=== PATIENT | female | born 1975 | race Caucasian/White ===

== ENCOUNTER 2017-08-07 11:38 | Day surgery (SDC) | payer MEDICAID ==
[2017-08-06 08:16] LABS: BASOPHILS # (AUTO) 0.1 K/uL (0.00-0.22); BASOPHILS % (AUTO) 1.4 % (0.0-2.0); EOSINOPHILS # (AUTO) 0.3 K/uL (0-0.4); HEMATOCRIT 37.4 % (36-48); HEMOGLOBIN 12.2 g/dL (12.0-16.0); LYMPHOCYTES # (AUTO) 2.3 K/uL (2.5-16.5); LYMPHOCYTES % (AUTO) 23.2 % (20.5-51.1); MEAN CORPUSCULAR HEMOGLOBIN 26 pg (27-31); MEAN CORPUSCULAR HGB CONC 33 g/dL (33-37); MEAN CORPUSCULAR VOLUME 80 fL (80-94); MONOCYTES # (AUTO) 0.3 K/uL (0.8-1.0); MONOCYTES % (AUTO) 3.4 % (1.7-9.3); PLATELET COUNT (AUTO) 352 K/uL (140-450); RED CELL DISTRIBUTION WIDTH 14.9 % (11.6-13.7)
[2017-08-06 08:31] LABS: ALBUMIN 3.4 g/dL (3.4-5.0); ANION GAP 11.3 (8-16); CARBON DIOXIDE 27.7 mmol/L (21-32); CREATININE 0.7 mg/dL (0.6-1.3); TOTAL BILIRUBIN 0.3 mg/dL (0.0-1.0)
[~2017-08-07] VITALS: Ht 149.9 cm; Wt 93.4 kg
[2017-08-07] MEDS ORDERED: LIDOCAINE 1% 50 ML ONE (13:53)
[2017-08-07] MEDS ORDERED: ceFAZolin 1,000 MG VIAL ONE (13:53)
[2017-08-07] MEDS ORDERED: BUPIVACAINE-MPF 0.25% 30 ML VIAL INJ ONE (13:53)
[2017-08-07] MEDS ORDERED: fentaNYL 0.05 MG/ML VIAL ONE (13:59)
[2017-08-07] MEDS ORDERED: MIDAZOLAM 2 MG/2 ML VIAL ONE (13:59)
[2017-08-07] MEDS ORDERED: METOCLOPRAMIDE 10 MG/2 ML INJ VIAL IVP PRN (14:35)
[2017-08-07] MEDS ORDERED: MORPHINE SULFATE 4 MG/ML SYR IVP PRN ×2 (14:35)
[2017-08-07] MEDS ORDERED: MIDAZOLAM 2 MG/2 ML VIAL IV ONE (14:35)
[2017-08-07] MEDS ORDERED: MORPHINE SULFATE 2 MG/ML SYR IVP PRN (14:35)
[2017-08-07] MEDS ORDERED: MORPHINE SULFATE 4 MG/ML SYR ONE ×2 (15:12→15:47)
[2017-08-07] MEDS ORDERED: HYDROmorphone 1 MG/ML AMP IVP PRN (15:15)
[2017-08-07] MEDS ORDERED: HYDROcodone/APAP 5/325 MG 1 TAB TAB PO PRN (15:15)
[2017-08-07] MEDS ORDERED: ONDANSETRON 4 MG/2 ML VIAL IV PRN (15:15)
[2017-08-07] MEDS ORDERED: MORPHINE SULFATE 4 MG/ML SYR IV PRN (15:15)
[2017-08-07 16:05] VITALS: BP 154/93
--- NOTE | 2017-08-07 16:05 | NUR ---
PT ARRIVED ON [facility] UNIT RECEIVED PT REPORT FROM DAY SURGERY NURSE. PT IS AAOX4 AND DROWSY BUT SHOWS NO S/S OF ACUTE DISTRESS ON ROOM AIR. PT V/S ARE STABLE AND CHARTED. PT HAS NOTED MEDIPORT ON THE LEFT UPPER CHEST. IV NOTED ON THE L AC SL. PT DENIES PAIN AT THIS TIME. PT AT BEDSIDE AND WAS EXPLAINED POC FOR TODAY. PT VERBALIZED UNDERSTANDING. PT HAS IV KIT IN POSSESSION AND HAS IT NOW. WILL CONTINUE TO MONITOR.
--- NOTE | 2017-08-07 17:22 | NUR ---
PT AMB TO BR AND STATED SHE FELT A LITTLE DIZZY. PT STATES SHE IS FINE AND IS NOW USING THE RR. WILL CONTINUE TO MONITOR.
--- NOTE | 2017-08-07 18:12 | NUR ---
PT C/O NAUSEA AFTER EATING DINNER. ADMINISTERED ZOFRAN 4 MG IVP. WILL REASSESS IN 30 MIN.
[2017-08-07 18:50] VITALS: BP 153/99
--- NOTE | 2017-08-07 18:50 | NUR ---
PT HAS BEEN DISCHARGED. ALL DISCHARGE INSTRUCTIONS AND PRESCRIPTIONS GIVEN AND IN PT POSSESSION. ALL PAPERWORK SIGNED. ALL QUESTIONS ANSWERED. ALL BELONGINGS AND PRESCRIPTIONS IN PT POSSESSION. IV WAS DISCONTINUED WITH CANNULA INTACT. WRISTBANDS REMOVED. PT LEFT UNIT IN STABLE CONDITION, DENIED PAIN, SOB, AND NAUSEA/VOMITING. PT LEFT UNIT IN WHEELCHAIR WITH PRESENT AT SIDE. PT LEFT IN STABLE CONDITION.
== END 2017-08-07 18:50 | disposition home or self-care (01) ==
LOC: MDS 11:38 → MMU 11:39 → MDS 18:50
PROVIDERS: ATTEND Surgery
DX: C50.911 Malignant neoplasm of unspecified site of right female breast (principal); E66.01 Morbid (severe) obesity due to excess calories
CPT/HCPCS: 36415; 36561; 71010; 77001; 80053; 84702; 85025; 86886; 86900; 86901; 93005; C1751; J0690; J1644; J2001; J2250; J2270; J2405; J3010; J3490; J7030; J7060; J7120; Q0092

== ENCOUNTER 2018-05-24 10:04 | Emergency (ER) | payer MEDICAID ==
[~2018-05-24] VITALS: Ht 149.9 cm; Wt 108.9 kg
[2018-05-24 10:15] VITALS: BP 192/112
--- NOTE | 2018-05-24 10:24 | NUR ---
PATIENT PRESENTS TO ED WITH RIGHT BREAST INCISION SITE REDNESS AND DRAINAGE---PRESSURE PAIN TO SITE---SURGICAL EXCISION OF TUMOR ON RIGHT BREAST 12/2017 . PT STATES . DENIES N/V/D; SKIN IS PINK/WARM/DRY; PT DENIES ANY FEVER, CP, SOB, OR COUGH AT THIS TIME; PATIENT STATES PAIN OF 3/10 AT THIS TIME; VSS; PATIENT POSITIONED FOR COMFORT; HOB ELEVATED; BEDRAILS UP X2; BED DOWN. ER MD MADE AWARE OF PT STATUS.
--- NOTE | 2018-05-24 12:35 | NUR ---
MD AWARE OF ULTRASOUND READ IS BACK---
--- NOTE | 2018-05-24 14:06 | NUR ---
PLAN IS FOR TO EVALUATE PT POSSIBLE ADMISSION---BLOOD HAS BEEN COLLECTED
[2018-05-24 14:20] LABS: BASOPHILS % (AUTO) 0.4 % (0.0-2.0); EOSINOPHILS # (AUTO) 0.1 K/uL (0-0.4); EOSINOPHILS % (AUTO) 1.1 % (0.0-4.0); HEMATOCRIT 40.7 % (36-48); LYMPHOCYTES # (AUTO) 1.7 K/uL (2.5-16.5); LYMPHOCYTES % (AUTO) 23.8 % (20.5-51.1); MEAN CORPUSCULAR HEMOGLOBIN 26 pg (27-31); MEAN CORPUSCULAR HGB CONC 32 g/dL (33-37); MEAN CORPUSCULAR VOLUME 80.7 fL (80-94); MONOCYTES # (AUTO) 0.4 K/uL (0.8-1.0); MONOCYTES % (AUTO) 5.1 % (1.7-9.3); NEUTROPHILS # (AUTO) 4.9 K/uL (1.8-7.7); NEUTROPHILS % (AUTO) 69.6 % (42.2-75.2); PLATELET COUNT (AUTO) 365 K/uL (140-450); RED BLOOD CELL COUNT(AUTO) 5.05 MIL/uL (4.20-5.40); RED CELL DISTRIBUTION WIDTH 16.2 % (11.6-13.7); WHITE BLOOD COUNT (AUTO) 7.1 K/uL (4.8-10.8)
[2018-05-24 14:48] LABS: ANION GAP 13.5 (8-16); CARBON DIOXIDE 26.1 mmol/L (21-32); CREATININE 0.7 mg/dL (0.6-1.3); POTASSIUM 3.6 mmol/L (3.5-5.1)
--- NOTE | 2018-05-24 17:50 | NUR ---
I & D ABSCESS TO RIGHT BREAST----MD SPOKE WITH PT ABOUT F/U 06/03/2018 AND RX FOR KEFLEX
--- NOTE | 2018-05-24 18:35 | NUR ---
Patient discharged with v/s stable. Written and verbal after care instructions given and explained. Patient alert, oriented and verbalized understanding of instructions. Ambulatory with steady gait. All questions addressed prior to discharge. ID band removed. Patient advised to follow up with PMD. Rx of KEFLEX/NORCO given. Patient educated on indication of medication including possible reaction and side effects. Opportunity to ask questions provided and answered.
[2018-05-24 18:36] VITALS: BP 132/84
== END 2018-05-24 18:35 | disposition home or self-care (01) ==
LOC: MED 10:04
DX: N61.1 Abscess of the breast and nipple (principal); Z85.3 Personal history of malignant neoplasm of breast; I10 Essential (primary) hypertension; Z98.890 Other specified postprocedural states
CPT/HCPCS: 19120; 36415; 76641; 80048; 85025; 87040; 99285; Q0092

== ENCOUNTER 2018-05-27 07:23 | Emergency (ER) | payer MEDICAID ==
[~2018-05-27] VITALS: Ht 149.9 cm; Wt 91.6 kg
[2018-05-27 07:24] VITALS: BP 142/88
--- NOTE | 2018-05-27 07:32 | NUR ---
PT AMBULATED TO BED 12 WITH STEADY GAIT
--- NOTE | 2018-05-27 07:40 | NUR ---
43/F PRESENT TO ER C/O RIGHT BREAST INCISION SITE RECHECK---SURGICAL EXCISION OF TUMOR ON RIGHT BREAST 12/2017. NOT REDNESS, SWELLING OR DISCHARGE NOTED AT THE INCISION SITE. PAIN 12/15. PT WITH NO OTHER C/O AT THIS TIME. PT POSITIONED FOR COMFORT. HX: HTN MEDS: NONE
--- NOTE | 2018-05-27 07:49 | NUR ---
Patient being evaluated by physician at bedside.
[2018-05-27] MEDS ORDERED: NEOMYCIN/POLYMYXIN/BACITRACIN 0.9 GM/1 PKT TP ONE (07:50)
[2018-05-27 08:11] VITALS: BP 142/88
--- NOTE | 2018-05-27 08:11 | NUR ---
Patient discharged with v/s stable. Written and verbal after care instructions given and explained. Patient verbalized understanding. Ambulatory with steady gait. All questions addressed prior to discharge. Advised to follow up with PMD.
== END 2018-05-27 08:11 | disposition home or self-care (01) ==
LOC: MED 07:23
DX: Z48.01 Encounter for change or removal of surgical wound dressing (principal); I10 Essential (primary) hypertension; Z85.3 Personal history of malignant neoplasm of breast
CPT/HCPCS: 99283

== ENCOUNTER 2018-09-03 05:57 | Day surgery (SDC) | payer MEDICAID ==
[2018-08-30 16:24] LABS: BASOPHILS % (AUTO) 0.5 % (0.0-2.0); EOSINOPHILS # (AUTO) 0.2 K/uL (0-0.4); EOSINOPHILS % (AUTO) 2.2 % (0.0-4.0); HEMATOCRIT 41.8 % (36-48); HEMOGLOBIN 13.5 g/dL (12.0-16.0); LYMPHOCYTES # (AUTO) 2.4 K/uL (2.5-16.5); MEAN CORPUSCULAR HEMOGLOBIN 26 pg (27-31); MEAN CORPUSCULAR HGB CONC 32 g/dL (33-37); MEAN CORPUSCULAR VOLUME 80.5 fL (80-94); MONOCYTES # (AUTO) 0.3 K/uL (0.8-1.0); MONOCYTES % (AUTO) 4.1 % (1.7-9.3); NEUTROPHILS # (AUTO) 4.9 K/uL (1.8-7.7); NEUTROPHILS % (AUTO) 62.2 % (42.2-75.2); PLATELET COUNT (AUTO) 361 K/uL (140-450); RED BLOOD CELL COUNT(AUTO) 5.19 MIL/uL (4.20-5.40); RED CELL DISTRIBUTION WIDTH 14.8 % (11.6-13.7); WHITE BLOOD COUNT (AUTO) 7.8 K/uL (4.8-10.8)
[2018-08-30 16:45] LABS: ANION GAP 8.9 (8-16); CARBON DIOXIDE 30.8 mmol/L (21-32); CREATININE 0.7 mg/dL (0.6-1.3); POTASSIUM 3.7 mmol/L (3.5-5.1)
[~2018-09-03] VITALS: Ht 152.4 cm; Wt 89.8 kg
[2018-09-03] MEDS ORDERED: EXEM25TA5 PO (07:02)
[2018-09-03] MEDS ORDERED: CEFAZOLIN SODIUM 1 GM/D5W PM 50 ML IV SCH (07:20)
[2018-09-03] MEDS ORDERED: LIDOCAINE/EPI MPF 1%1:200000 30 ML VIAL INJ ONE (07:20)
[2018-09-03] MEDS ORDERED: BUPIVACAINE-MPF/EPI 0.25% 30 ML VIAL INJ ONE (07:20)
[2018-09-03] MEDS ORDERED: MIDAZOLAM 2 MG/2 ML VIAL ONE (07:28)
[2018-09-03] MEDS ORDERED: fentaNYL 0.05 MG/ML VIAL ONE (07:28)
[2018-09-03] MEDS ORDERED: HYDROcodone/APAP 5/325 MG 1 TAB TAB PO PRN (08:20)
[2018-09-03] MEDS ORDERED: ONDANSETRON 4 MG/2 ML VIAL IV PRN (08:20)
[2018-09-03] MEDS ORDERED: HYDROmorphone 1 MG/ML AMP IVP PRN (08:20)
[2018-09-03] MEDS ORDERED: MORPHINE SULFATE 4 MG/ML SYR IV PRN (08:20)
[2018-09-03] MEDS ORDERED: MORPHINE SULFATE 4 MG/ML SYR IVP PRN (08:20)
== END 2018-09-03 09:14 | disposition home or self-care (01) ==
LOC: MDS 05:57 → MMU 05:59 → MDS 09:14
PROVIDERS: ATTEND Surgery
DX: Z45.2 Encounter for adjustment and management of vascular access device (principal); I10 Essential (primary) hypertension; E11.9 Type 2 diabetes mellitus without complications; Z79.899 Other long term (current) drug therapy; Z85.3 Personal history of malignant neoplasm of breast; Z98.890 Other specified postprocedural states; Z98.51 Tubal ligation status
CPT/HCPCS: 36415; 36590; 71045; 80048; 81025; 82948; 85025; 93005; J0690; J3490; J7120; J2001; J2250; J3010

== ENCOUNTER 2019-06-06 16:21 | Inpatient (IN) | payer MEDICAID ==
[~2019-06-06] VITALS: Ht 152.4 cm; Wt 88.5 kg
[~2019-06-06 16:21] MED LIST: EXEM25TA5 PO
[2019-06-06 16:25] VITALS: BP 175/80
[2019-06-06] MEDS ORDERED: ASPIRIN 81 MG TAB.CHEW PO ONE (16:55)
[2019-06-06] MEDS ORDERED: NITROGLYCERIN 0.4 MG TAB SL ONE (16:55)
[2019-06-06 17:30] LABS: BASOPHILS % (AUTO) 0.4 % (0.0-2.0); EOSINOPHILS # (AUTO) 0.1 K/uL (0-0.4); EOSINOPHILS % (AUTO) 1.6 % (0.0-4.0); HEMATOCRIT 35.9 % (36-48); HEMOGLOBIN 11.8 g/dL (12.0-16.0); LYMPHOCYTES # (AUTO) 2.5 K/uL (2.5-16.5); LYMPHOCYTES % (AUTO) 29.4 % (20.5-51.1); MEAN CORPUSCULAR HEMOGLOBIN 27 pg (27-31); MEAN CORPUSCULAR HGB CONC 33 g/dL (33-37); MEAN CORPUSCULAR VOLUME 83.3 fL (80-94); MONOCYTES # (AUTO) 0.4 K/uL (0.8-1.0); MONOCYTES % (AUTO) 4.6 % (1.7-9.3); NEUTROPHILS # (AUTO) 5.4 K/uL (1.8-7.7); PLATELET COUNT (AUTO) 272 K/uL (140-450); RED BLOOD CELL COUNT(AUTO) 4.31 MIL/uL (4.20-5.40); RED CELL DISTRIBUTION WIDTH 13.8 % (11.6-13.7); WHITE BLOOD COUNT (AUTO) 8.5 K/uL (4.8-10.8)
[2019-06-06 17:40] LABS: APPEARANCE,URINE CLEAR (CLEAR); BILIRUBIN,URINE NEGATIVE (NEGATIVE); BLOOD, URINE NEGATIVE (NEGATIVE); COLOR,URINE YELLOW (YELLOW); LEUKOCYTE ESTERASE ,URINE TRACE (NEGATIVE); NITRITE, URINE NEGATIVE (NEGATIVE); PH,URINE 6.5 (5.0-9.0); UGLUCOSE NEGATIVE (NEGATIVE)
[2019-06-06 17:44] LABS: ANION GAP 12.2 (8-16); CARBON DIOXIDE 28.1 mmol/L (21-32); CREATININE 0.7 mg/dL (0.6-1.3); POTASSIUM 3.3 mmol/L (3.5-5.1)
[2019-06-06 17:45] LABS: RBC,URINE 0-5 /HPF (0-5)
[2019-06-06 17:49] LABS: ALBUMIN 3.2 g/dL (3.4-5.0); TOTAL BILIRUBIN 0.2 mg/dL (0.0-1.0)
[2019-06-06] MEDS ORDERED: TAMO20TA3 PO (18:12)
[2019-06-06] MEDS ORDERED: LISI-420 PO (18:12)
[2019-06-06] MEDS ORDERED: ORE25 PO (18:12)
[2019-06-06] MEDS ORDERED: METF500T PO (18:12)
[2019-06-06] MEDS ORDERED: ONDANSETRON 4 MG/2 ML VIAL IM/IVP PRN (18:25)
[2019-06-06] MEDS ORDERED: LORazepam 2 MG/ML VIAL IM/IVP PRN (18:25)
[2019-06-06] MEDS ORDERED: HYDROcodone/APAP 7.5/325 MG 1 TAB PO PRN (18:25)
[2019-06-06] MEDS ORDERED: FAMOTIDINE 20 MG/2 ML VIAL IV PRN (18:25)
[2019-06-06] MEDS ORDERED: DOCUSATE SODIUM 100 MG GELCAP PO PRN (18:25)
[2019-06-06] MEDS ORDERED: ACETAMINOPHEN 325 MG TAB PO PRN (18:25)
[2019-06-06] MEDS: NACL 0.9% 1,000 ML IV SCH (19:25)
[2019-06-06 19:52] LABS: PROTHROMBIN TIME 9.6 secs (10.8-13.4)
[2019-06-06 20:00] VITALS: BP 152/78
[2019-06-06] MEDS ORDERED: metFORMIN 500 MG TAB PO SCH (20:00)
[2019-06-06] MEDS ORDERED: POTASSIUM CHLORIDE 20 MEQ, LIDOCAINE MPF 1% - 5 mL VIAL 25 MG in NACL 0.9% 250 ML IV SCH (20:00)
[2019-06-06 20:10] LABS: ALBUMIN 3.2 g/dL (3.4-5.0); FREE T4 (FREE THYROXINE) 1.16 ng/dL (0.76-1.46); MAGNESIUM 1.8 mg/dL (1.8-2.4); PHOSPHORUS 4.8 mg/dL (2.5-4.9); THYROID STIMULATING HORMONE 1.67 uIU/mL (0.34-3.74)
[2019-06-06] MEDS: ATORVASTATIN 20 MG TAB PO SCH (20:27)
[2019-06-06] MEDS: metFORMIN 500 MG TAB PO SCH (20:45)
[2019-06-06] MEDS ORDERED: INSULIN LISPRO SLIDING SCALE 100 UNITS/ML VIAL SUBQ PRN (20:50)
[2019-06-06] MEDS ORDERED: GLUCAGON 1 MG VIAL IVP PRN (20:50)
[2019-06-06] MEDS ORDERED: DEXTROSE 50% 50 ML SYR IVP PRN (20:50)
[2019-06-06] MEDS ORDERED: KETOROLAC 30 MG/ML VIAL IM PRN (21:15)
[2019-06-06] MEDS: BLOOD GLUCOSE MONITORING 1 DEV DEV FS SCH (21:45)
[2019-06-06] MEDS ORDERED: METOPROLOL 25 MG TAB PO SCH (22:00)
[2019-06-07] VITALS: BP 150/75
[2019-06-07 04:00] VITALS: BP 151/82
[2019-06-07] MEDS: NACL 0.9% 1,000 ML IV SCH ×2 (04:35→14:35)
[2019-06-07 06:41] LABS: BASOPHILS % (AUTO) 0.2 % (0.0-2.0); EOSINOPHILS # (AUTO) 0.1 K/uL (0-0.4); HEMATOCRIT 35.6 % (36-48); HEMOGLOBIN 11.6 g/dL (12.0-16.0); LYMPHOCYTES # (AUTO) 2.7 K/uL (2.5-16.5); LYMPHOCYTES % (AUTO) 39.7 % (20.5-51.1); MEAN CORPUSCULAR HEMOGLOBIN 28 pg (27-31); MEAN CORPUSCULAR HGB CONC 33 g/dL (33-37); MEAN CORPUSCULAR VOLUME 84.9 fL (80-94); MONOCYTES # (AUTO) 0.3 K/uL (0.8-1.0); MONOCYTES % (AUTO) 4.8 % (1.7-9.3); NEUTROPHILS # (AUTO) 3.6 K/uL (1.8-7.7); NEUTROPHILS % (AUTO) 53.3 % (42.2-75.2); PLATELET COUNT (AUTO) 253 K/uL (140-450); RED CELL DISTRIBUTION WIDTH 14.2 % (11.6-13.7); WHITE BLOOD COUNT (AUTO) 6.7 K/uL (4.8-10.8)
[2019-06-07] MEDS: BLOOD GLUCOSE MONITORING 1 DEV DEV FS SCH ×4 (06:42→21:45)
[2019-06-07 07:04] LABS: ANION GAP 12.4 (8-16); CARBON DIOXIDE 26.3 mmol/L (21-32); CREATININE 0.6 mg/dL (0.6-1.3); POTASSIUM 3.7 mmol/L (3.5-5.1)
[2019-06-07 08:00] VITALS: BP 156/71
[2019-06-07] MEDS ORDERED: metFORMIN 500 MG TAB PO SCH (08:00)
[2019-06-07] MEDS ORDERED: HYDROCHLOROTHIAZIDE 25 MG TAB PO SCH ×2 (09:00→18:00)
[2019-06-07] MEDS ORDERED: TAMOXIFEN CITRATE 20 MG PO SCH (09:00)
[2019-06-07] MEDS: metFORMIN 500 MG TAB PO SCH ×2 (09:19→17:25)
[2019-06-07] MEDS: LISINOPRIL 20 MG TAB PO SCH (09:20)
[2019-06-07] MEDS: TAMOXIFEN 10 MG TAB PO SCH (09:23)
[2019-06-07] MEDS: METOPROLOL 25 MG TAB PO SCH ×2 (09:23→21:51)
[2019-06-07 12:00] VITALS: BP 178/91
[2019-06-07] MEDS ORDERED: hydrALAZINE 20 MG/ML VIAL IVP PRN ×2 (14:20→21:40)
[2019-06-07 16:00] VITALS: BP 160/86
[2019-06-07] MEDS ORDERED: KETOROLAC 30 MG/ML VIAL IVP PRN (18:20)
[2019-06-07 20:00] VITALS: BP 155/92
[2019-06-07] MEDS: ATORVASTATIN 20 MG TAB PO SCH (21:50)
[2019-06-08] VITALS (7 sets, daily range): BP systolic 136–176; BP diastolic 78–139
[2019-06-08] MEDS: BLOOD GLUCOSE MONITORING 1 DEV DEV FS SCH ×3 (06:01→16:19)
[2019-06-08 06:40] LABS: BASOPHILS % (AUTO) 0.4 % (0.0-2.0); EOSINOPHILS # (AUTO) 0.1 K/uL (0-0.4); EOSINOPHILS % (AUTO) 2.2 % (0.0-4.0); LYMPHOCYTES # (AUTO) 1.9 K/uL (2.5-16.5); LYMPHOCYTES % (AUTO) 30.6 % (20.5-51.1); MEAN CORPUSCULAR HEMOGLOBIN 28 pg (27-31); MEAN CORPUSCULAR HGB CONC 33 g/dL (33-37); MONOCYTES # (AUTO) 0.3 K/uL (0.8-1.0); NEUTROPHILS # (AUTO) 3.9 K/uL (1.8-7.7); NEUTROPHILS % (AUTO) 61.8 % (42.2-75.2); PLATELET COUNT (AUTO) 266 K/uL (140-450); RED BLOOD CELL COUNT(AUTO) 4.28 MIL/uL (4.20-5.40); RED CELL DISTRIBUTION WIDTH 14.4 % (11.6-13.7); WHITE BLOOD COUNT (AUTO) 6.3 K/uL (4.8-10.8)
[2019-06-08 06:54] LABS: ANION GAP 12.9 (8-16); CARBON DIOXIDE 23.9 mmol/L (21-32); CREATININE 0.4 mg/dL (0.6-1.3)
[2019-06-08 06:59] LABS: MAGNESIUM 1.6 mg/dL (1.8-2.4); PHOSPHORUS 4.5 mg/dL (2.5-4.9)
[2019-06-08 07:14] LABS: POTASSIUM 2.8 mmol/L (3.5-5.1)
[2019-06-08] MEDS: LISINOPRIL 20 MG TAB PO SCH (08:59)
[2019-06-08] MEDS ORDERED: HYDROCHLOROTHIAZIDE 25 MG TAB PO SCH (09:00)
[2019-06-08] MEDS: metFORMIN 500 MG TAB PO SCH ×2 (09:00→16:18)
[2019-06-08] MEDS: METOPROLOL 25 MG TAB PO SCH (09:01)
[2019-06-08] MEDS: TAMOXIFEN 10 MG TAB PO SCH (09:13)
[2019-06-08] MEDS ORDERED: POTASSIUM CHLORIDE 40 MEQ, LIDOCAINE 1% 25 MG in NACL 0.9% 250 ML IV SCH (09:15)
[2019-06-08] MEDS: NACL 0.9% 1,000 ML IV SCH (09:51)
[2019-06-08] MEDS ORDERED: METOPROLOL 25 MG TAB PO SCH (12:15)
[2019-06-08] MEDS ORDERED: MAG SULF 2000 MG/WATER PREMIX 50 ML IV SCH (13:30)
[2019-06-08] MEDS ORDERED: ORE25 PO (15:08)
[2019-06-08] MEDS ORDERED: AMLO5TAB PO (15:08)
[2019-06-08] MEDS ORDERED: amLODIPine 5 MG TAB PO SCH (16:00)
[2019-06-08] MEDS ORDERED: HYDR12.51 PO (16:12)
[2019-06-08] MEDS ORDERED: POTASSIUM CHLORIDE 10 MEQ TABER PO ONE (16:30)
[2019-06-08] MEDS: POTASSIUM CHLORIDE 10 MEQ TABER PO ONE ×3 (17:04→17:16)
[2019-06-08 18:22] LABS: ANION GAP 16.2 (8-16); CARBON DIOXIDE 24.5 mmol/L (21-32); CREATININE 0.7 mg/dL (0.6-1.3); POTASSIUM 3.7 mmol/L (3.5-5.1)
[2019-06-09] MEDS ORDERED: HYDROCHLOROTHIAZIDE 25 MG TAB PO SCH (09:00)
[2019-06-09] MEDS ORDERED: amLODIPine 5 MG TAB PO SCH (09:00)
== END 2019-06-08 20:15 | disposition home or self-care (01) | DRG 203 ==
LOC: MED 16:21 → MTU 18:31
PROVIDERS: ADMIT General Practice; ATTEND General Practice
DX: M94.0 Chondrocostal junction syndrome [Tietze] (principal); E44.0 Moderate protein-calorie malnutrition; D68.59 Other primary thrombophilia; I10 Essential (primary) hypertension; E11.9 Type 2 diabetes mellitus without complications; E87.6 Hypokalemia; N39.0 Urinary tract infection, site not specified; E66.9 Obesity, unspecified; Z85.3 Personal history of malignant neoplasm of breast; Z79.899 Other long term (current) drug therapy; Z90.11 Acquired absence of right breast and nipple; Z92.21 Personal history of antineoplastic chemotherapy; Z92.3 Personal history of irradiation; Z98.51 Tubal ligation status; Z79.84 Long term (current) use of oral hypoglycemic drugs; Z68.38 Body mass index [BMI] 38.0-38.9, adult
CPT/HCPCS: 36415; 71045; 80048; 80053; 81001; 82040; 82150; 82948; 83036; 83690; 83735; 83880; 84100; 84439; 84443; 84484; 85025; 85379; 85610; 85730; 87081; 87086; 93925; 93970; 99285; J0360; J0696; J1644; J1815; J1885; J2001; J3475; J3480; J7030; J7060; Q0092